=== PATIENT | male | born 1950 | race Caucasian/White ===

== ENCOUNTER 2021-06-28 07:07 | Emergency (ER) | payer MEDICARE, BC ==
[2021-06-28 07:13] VITALS: RESP 18
[2021-06-28] MEDS ORDERED: SODIUM CHLORIDE 0.9% 50 ML IVPB ONE (08:15)
[2021-06-28] MEDS ORDERED: CASIRIVIMAB (REGN10933) (EUA) 600 MG, IMDEVIMAB (REGN10987) (EUA) 600 MG in SODIUM CHLO... IVPB ONE (08:30)
[2021-06-28 08:41] VITALS: BP 138/78; PULSE 64; TEMP 98.5
--- NOTE | 2021-06-28 15:13 | ED ---
General Adult HPI - General Chief complaint: Upper Respiratory Infection Stated complaint: Antibody Infusion Time Seen by Provider: 06/28/21 07:22 Source: patient, RN notes reviewed, old records reviewed Mode of arrival: ambulatory Limitations: no limitations - History of Present Illness Initial comments: Patient is a 70-year-old male who presents emergency Department seeking an antibody infusion for COVID-19 infection. Patient was positive on June 19 and at symptoms maybe 1 or 2 days earlier. He endorses mostly GI complaints including diarrhea. Denies any nausea or vomiting. Endorses lack of appetite and lack of taste. Denies any upper respiratory complaints, any shortness of breath or dyspnea. Denies any cough or fevers. His no other acute complaints at this time. Was not vaccinated for COVID-19. Denies any chest pain, headaches, weakness. He presents seeking the monoclonal antibody infusion. - Related Data Previous Rx's Medication Instructions Recorded Acetaminophen [Tylenol] 325 mg PO Q6HR PRN 7 Days #28 06/28/21 capsule Albuterol Inhaler [Ventolin Hfa 1 puff INHALATION RT-QID #8 gm 06/28/21 Inhaler] Allergies Allergy/AdvReac Type Severity Reaction Status Date / Time morphine AdvReac Nausea Verified 06/28/21 07:13 Review of Systems ROS Statement: Those systems with pertinent positive or pertinent negative responses have been documented in the HPI. Review of Systems: CONST: Denies fever EYES: Denies blurry vision ENT: Denies nasal congestion C/V: Denies Chest pain RESP: Denies shortness of breath GI: Denies abdominal pain : Denies dysuria SKIN: Denies rash. MSK: Denies joint pain. NEURO: Denies headache ROS Other: All systems not noted in ROS Statement are negative. Past Medical History Past Medical History: Diabetes Mellitus, Hyperlipidemia, Hypertension History of Any Multi-Drug Resistant Organisms: None Reported Past Surgical History: Cholecystectomy, Heart Catheterization With Stent, Orthopedic Surgery Additional Past Surgical History / Comment(s): part of colon removed Past Psychological History: No Psychological Hx Reported Smoking Status: Never smoker Past Alcohol Use History: Occasional Past Drug Use History: None Reported General Exam - General Exam Comments Initial Comments: General: Appears in no acute distress. HEAD: Normal with no signs of head trauma. EYES: PERRLA, EOMI, conjunctiva normal, no discharge. ENT: Hearing grossly intact, normal oropharynx. RESPIRATORY: Clear breath sounds bilaterally. No wheezes, rales, or rhonchi. C/V: Regular rate and rhythm. S1 and S2 auscultated, no edema, peripheral pulses 2+ and intact throughout ABD: Abd is soft, nontender, nondistended EXT: Normal range of motion, no obvious deformity SKIN: No rashes or lesions observed on exposed skin. NEURO: Alert and oriented x 4. Cranial nerves II-XII intact. No focal sensory or strength deficits. Limitations: no limitations Course Vital Signs 06/28/21 06/28/21 07:09 08:25 Temperature 97.2 F L 98.5 F Pulse Rate 79 64 Respiratory 18 18 Rate Blood Pressure 176/100 138/78 O2 Sat by Pulse 97 95 Oximetry Medical Decision Making - Medical Decision Making Based on patient's presentation and physical exam, I do not believe that the patient requires any laboratory studies or imaging at this time. He is a previously documented COVID-19 infection. He is seeking monoclonal antibodies. I'm in agreement this plan. Patient consented monoclonal antibodies. Patient was observed for a period of time following monoclonal antibodies. He had no ALLERGIC reaction. He was discharged home in stable condition. I instructed the patient to follow up with their PCP in the next 3 days. I instructed him to return to the emergency department if they experience any worsening symptoms. Strict return precautions were discussed with the patient. The patient expressed understanding of these instructions. I answered all questions that the patient had. The patient was discharged home in fair condition with their prescriptions and follow up information. Disposition Clinical Impression: COVID-19 Disposition: HOME SELF-CARE Condition: Fair Prescriptions: Acetaminophen [Tylenol] 325 mg PO Q6HR PRN 7 Days #28 capsule PRN Reason: Fever Albuterol Inhaler [Ventolin Hfa Inhaler] 1 puff INHALATION RT-QID #8 gm Is patient prescribed a controlled substance at d/c from ED?: No Referrals: David Lua MD [Primary Care Provider] - 1-2 days
== END 2021-06-28 10:31 | disposition home or self-care (01) ==
LOC: EC 07:07
DX: U07.1 COVID-19 (principal); E11.9 Type 2 diabetes mellitus without complications; I10 Essential (primary) hypertension; E78.5 Hyperlipidemia, unspecified; Z88.5 Allergy status to narcotic agent; Z90.49 Acquired absence of other specified parts of digestive tract
CPT/HCPCS: 96365; 99283; Q0243

== ENCOUNTER → 2022-07-07 | Outpatient (CLI) | payer OTHER ==
--- NOTE | 2022-07-10 22:51 | MR ---
EXAMINATION TYPE: MR shoulder LT wo con DATE OF EXAM: 07/07/2022 COMPARISON: None HISTORY: Pt unable to raise his arm x1 year. Pain. TECHNIQUE: Multiplanar, multisequence imaging of the left shoulder is performed without contrast. FINDINGS: Suboptimal study as sagittal imaging was not performed by technologist. Rotator Cuff: Full-thickness retracted tear of the supraspinatus tendon retracted to level of the dis ramirez clavicle and likely infraspinatus tendon is thought present with at least [id number] muscul ar atrophy. There is suspected full-thickness tear of the subscapularis tendon with surrounding fluid and increased signal distally for rapidly tapering. Acromioclavicular Joint: Moderate to severe narrowing and capsular hypertrophy. Moderate spurring. Glenohumeral Joint: High riding humeral head suggesting underlying instability. At least moderate kai rowing with moderate disc size joint effusion Labrum: Increased signal superior labrum suggesting degenerative tearing.. Biceps Tendon: The long head of biceps is identified in normal location within bicipital groove. Incr eased signal extra-articular portion consistent with vertical oriented partial tearing is seen. Intra -articular portion is not well identified, tear from the labral anchor is felt present. Bone marrow signal: No focal abnormal marrow signal is appreciated. Other: No additional significant abnormality is appreciated. IMPRESSION: Suboptimal study due to technologist error. Full-thickness retracted tears of the suprasp inatus and infraspinatus tendons are felt present with muscular atrophy. Significant tear of the supr aspinatus tendon. There is vertical partial tearing of the long head of biceps tendon. There is retra cted tear from the labral anchor. Fairly advanced degenerative changes are noted. High riding humeral head suggests underlying instability.
== END | disposition home or self-care (01) ==
LOC: RADMRIMAIN 11:13
DX: M75.112 Incomplete rotator cuff tear or rupture of left shoulder, not specified as traumatic (principal); M19.012 Primary osteoarthritis, left shoulder